=== PATIENT | male | born 1970 | race Caucasian/White ===

== ENCOUNTER 2021-03-26 06:24 | Emergency (ER) | payer MEDICARE, MEDICAID, SELFPAY ==
[2021-03-26 06:28] VITALS: BP 161/109; PULSE 102; RESP 18; TEMP 36.7; O2SAT 96; BMI 28.1
--- NOTE | 2021-03-26 06:35 | USR_ITS ---
PROCEDURE INFORMATION: Exam: US Scrotum Exam date and time: 03/26/2021 6:35 AM Age: 50 years old Clinical indication: Groin pain and scrotum pain TECHNIQUE: Imaging protocol: Real-time ultrasound of the scrotum and contents with color Doppler and image documentation. COMPARISON: No relevant prior studies available. FINDINGS: Right testicle: The right testicle measures 4.8 x 1.8 x 3.0 cm. Homogeneous echotexture with no mass. Normal color flow and spectral Doppler waveforms noted within the testicle. Left testicle: The left testicle measures 4.8 x 2.1 x 3.5 cm. Homogeneous echotexture with no mass. Slightly increased blood flow within the left testicle with normal spectral Doppler waveforms. Epididymides: The left epididymal head measures 7 mm and contains 2 contiguous hypoechoic cysts measuring 6 mm in aggregate. The right epididymal head measures 7 mm. Scrotum: No significant hydrocele. US/US scrotum [id number] IMPRESSION: 1. Mild hyperemia of the left testicle, correlate for orchitis. 2. No evidence of testicular torsion or mass. 3. Incidental small left epididymal head cysts/spermatoceles.
--- NOTE | 2021-03-26 06:36 | ED_ITS ---
HPI - Male Genitourinary General: Chief complaint: Urogenital-Male Stated complaint: TESTICAL PAIN Time Seen by Provider: 03/26/21 06:33 History of Present Illness: HPI Narrative: This patient is a 50-year-old male who presents to the emergency department plaint of left testicle pain. Patient states appears to be more above the testicle but between the testicle and the shaft of the penis. Patient states he also has pain over to the left groin area. Patient states [place] [facility] [facility] last weekend but does not remember any injury. Patient's been hurting for the past 2 days. Will do medical evaluation treat as needed MD Complaint: testicle pain Associated symptoms: Deny dysuria, nausea or vomiting Review of Systems General: Reports: 10 or more systems reviewed and unremarkable except in HPI and below Const: Denies: fever(s), chills, body aches or fatigue Eyes: Denies: change in vision or blurry vision ENMT: Denies: throat pain, hoarseness or mouth pain Card: Denies: chest pain, palpitations, irregular heart rhythm, edema, swe lling of feet/ankles or lightheadedness Resp: Denies: dyspnea, productive cough, non-productive cough, wheezing or pain on inspiration GI: Denies: abdominal pain, nausea or vomiting : Reports: testicular pain; Denies: flank pain, dysuria, urinary frequency, urinary urgency or urinary hesitancy Musc: Denies: neck pain, back pain, extremity pain, extremity swelling, joint pain, joint swelling, joint redness, joint warmth or limited range of motion Skin/Breast: Denies: rash, pruritus, erythema or skin tenderness Neuro: Denies: headache(s), numbness in extremities or weakness in extremities Psych: Denies: anxiety or depression Physical Exam Const: COMMON NORMALS: no acute distress, average body habitus, patient oriented x3, no limitations, healthy appearing, alert and well nourished HENMT: COMMON NORMALS: normocephalic, atraumatic, hearing grossly normal bilaterally, external ears normal, EAC's normal, TM's normal bilaterally, Normal external nose present, Normal nasal mucous membranes and turbinates present, moist oral mucous membranes, oropharynx normal, dentition normal and gingiva normal HEAD & SCALP: normocephalic and atraumatic NOSE: Normal external nose present and Normal nasal mucous membranes and turbinates present EXTERNAL EAR: Yes external ears normal EXTERNAL AUDITORY CANAL: EAC's normal TYMPANIC MEMBRANE: TM's normal bilaterally Neck/C-Spine: COMMON NORMALS: full ROM, no lymphadenopathy, supple, no meningeal signs, no JVD, Thyroid normal and No carotid bruits THYROID: Thyroid normal Chest: COMMONS NORMALS: normal inspection of the chest, normal palpation of entire chest wall, normal inspection of the breasts and normal palpation of the breasts Breast/axilla inspection: Yes normal inspection of the breasts BREAST/AXILLA PALPATION: Yes normal palpation of the breasts Resp: COMMON NORMALS: normal respiratory effort, No retractions, No use of accessory muscles, clear to auscultation bilaterally and percussion normal AUSCULTATION: clear to auscultation bilaterally PERCUSSION: percussion normal Cardio: COMMON NORMALS: no JVD, regular rate, regular rhythm, S1 normal heart sound present, S2 normal heart sound present, No gallops present (Cardio), No clicks present (Cardio), No murmurs present (Cardio), No rub (Cardio) and Peripheral pulses 2+ throughout RATE: regular rate RHYTHM: regular rhythm HEART SOUNDS: S1 normal heart sound present and S2 normal heart sound present PERIPHERAL PULSES: Peripheral pulses 2+ throughout GI: COMMON NORMALS: Normal to inspection, nondistended, normoactive bowel sounds present, Soft to palpation, non-tender, No hepatosplenomegaly present, no masses and no bruits PALPATION: Yes Soft to palpation and Yes No hepatosplenomegaly present : COMMON NORMALS: Yes no CVA tenderness BLADDER/KIDNEY EXAM: Yes no CVA tenderness TESTES: Yes testicular tenderness (To palpation around the ep ididymis. Does not appear to have torsion.) Testicular tenderness laterality: left Back/Pelvis: COMMON NORMALS: no CVA tenderness, thoracic and lumbar spine normal to inspection, no thoracic nor lumbar tenderness, thoraco-lumbar ROM normal and straight leg raise negative bilaterally Extremity: COMMON NORMALS: normal to inspection, full ROM, capillary refill normal, no joint enlargement, no clubbing, cyanosis or edema, no calf tenderness and no pedal edema Neuro: COMMON NORMALS: patient oriented x3 SENSORIUM/ORIENTATION: Yes alert MENINGEAL SIGNS: Yes no meningeal signs Course ED course: Patient appears to have orchitis. Other evaluation negative negative ultrasound for torsion. Patient given instructions will be discharged home states understanding Vital Signs: Vital signs: Vital Signs Temperature 98.1 F 03/26/21 06:28 Pulse Rate 88 03/26/21 07:37 Respiratory Rate 18 03/26/21 07:37 Blood Pressure 148/100 03/26/21 07:37 Pulse Oximetry 98 03/26/21 07:37 MDM - Male MDM Narrative: Medical decision making narrative: This patient is a 50-year-old male who presents to the emergency department plaint of left testicle pain. Patient states appears to be more above the testicle but between the testicle and the shaft of the penis. Patient states he also has pain over to the left groin area. Patient states [place] [facility] [place] [facility] [place] weekend but does not remember any injury. Patient's been hurting for the past 2 days Patient appears to have orchitis. Patient will be placed on doxycycline. And diclofenac for pain. Patient instructed to use ice as needed. Athletic supporter. Follow-up with primary care physician in 3 to 5 days if not improved. Medical Records: Attestation: I reviewed the patient's medical records. Lab Data: Attestation: I reviewed the patient's lab results. Labs: Lab Results 03/26/21 Range/Units 06:57 Urine Color Yellow (Yellow) Urine Appearance Clear (CLEAR) Urine pH 5 (5-7) Ur Specific Gravit y 1.015 (1.005-1.030) Urine Protein Neg (Negative) Urine Glucose (UA) Norm (Normal) Urine Ketones Negative (Negative) Urine Blood Neg (Negative) Urine Nitrate Negative (Negative) Urine Bilirubin Neg (Negative) Urine Urobilinogen 1 H (Negative) mg/dL Ur Leukocyte Tresa ase Negative (Negative) Imaging Data: US: Attestation: I personally reviewed and interpreted this imaging study as fol lows: Radiologist's impression: IMPRESSION: 1. Mild hyperemia of the left testicle, correlate for orchitis. 2. No evidence of testicular torsion or mass. 3. Incidental small left epididymal head cysts/spermatoceles. Discharge Plan Discharge Patient Disposition: Home Clinical Impression: Acute orchitis Condition: Stable Prescriptions: New doxycycline hyclate 100 mg capsule 100 mg PO BID 7 Days Qty: 14 RF: 0 diclofenac sodium 75 mg tablet,delayed release (DR/EC) 75 mg PO BID PRN (Reason: pain) Qty: 20 RF: 0 Discharge Orders: Discharge ED (Routine); Ordered 03/26/21 Ordered By: Jeff Blanchard Discharge Diet: Advance as tolerated Discharge Activity: Resume usual activity Patient Instructions: Opioid Safety Activity Restrictions/Additional Instructions: Encourage p.o. fluids. Take medications as instructed. Use athletic supporter as needed. Ice as needed. Follow-up with PCP in 3 to 5 days if not. Coding Level of Care Code ED Project Architect for Manuel[employer] Fwd Exam Comprehensive
[2021-03-26 07:24] LABS: Add Urine Microscopic? NO; Charge for UA Resulting for Rev
[2021-03-26 07:34] LABS: Bilirubin Urine Neg (Negative); Blood Urine Neg (Negative); Glucose Urine UA Norm (Normal); Ketones Urine Negative (Negative); Leukocyte Esterase Urine Negative (Negative); Nitrate Urine Negative (Negative); Protein Urine Neg (Negative); Specific Gravity, Urine 1.015 (1.005-1.030); Urine Appearance Clear (CLEAR); Urine Color Yellow (Yellow); Urobilinogen Urine 1 mg/dL (Negative); pH Urine 5 (5-7)
[2021-03-26 07:37] VITALS: BP 148/100; PULSE 88; RESP 18; O2SAT 98
[2021-03-26 08:45] VITALS: BP 148/100; PULSE 88; RESP 18; O2SAT 98
== END 2021-03-26 08:45 | disposition home or self-care (01) ==
PROVIDERS: Emergency Provider Emergency Medicine
DX: N45.2 Orchitis (principal)
CPT/HCPCS: 76870; 81003; 99282

== ENCOUNTER 2021-10-24 06:00 | Outpatient (RCR) | payer MEDICARE, MEDICAID, SELFPAY | END 2021-10-30 23:59 | disposition home or self-care (01) | LOC: SPT 06:00 | PROVIDERS: Referring Provider Family Medicine; Visit Provider Family Medicine | DX: M51.26 Other intervertebral disc displacement, lumbar region (principal); M54.16 Radiculopathy, lumbar region | CPT/HCPCS: 97161 ==

== ENCOUNTER → 2022-10-09 17:39 | Outpatient (BNVA) | payer MEDICARE, MEDICAID, SELFPAY | PROVIDERS: Visit Provider Nurse Practitioner Family | DX: I10 Essential (primary) hypertension (principal); Z12.5 Encounter for screening for malignant neoplasm of prostate; K21.9 Gastro-esophageal reflux disease without esophagitis; Z12.2 Encounter for screening for malignant neoplasm of respiratory organs; Z12.11 Encounter for screening for malignant neoplasm of colon; F17.200 Nicotine dependence, unspecified, uncomplicated; F32.A Depression, unspecified; F41.9 Anxiety disorder, unspecified | CPT/HCPCS: 80053; 80061; G0103 ==

== ENCOUNTER → 2022-12-07 15:55 | Outpatient (BNVA) | payer MEDICARE, SELFPAY | PROVIDERS: Visit Provider Nurse Practitioner Family | DX: R10.12 Left upper quadrant pain (principal) | CPT/HCPCS: 74018 ==

== ENCOUNTER → 2023-04-08 16:39 | Outpatient (BNVA) | payer MEDICARE, SELFPAY | PROVIDERS: Visit Provider Nurse Practitioner Family | DX: E78.2 Mixed hyperlipidemia (principal); F41.9 Anxiety disorder, unspecified; F32.A Depression, unspecified; I10 Essential (primary) hypertension | CPT/HCPCS: 80053; 80061 ==

== ENCOUNTER → 2023-04-24 14:40 | Outpatient (BNVA) | payer MEDICARE, SELFPAY | PROVIDERS: Visit Provider Nurse Practitioner Family | DX: N52.9 Male erectile dysfunction, unspecified (principal) | CPT/HCPCS: 84402; 84403 ==

== ENCOUNTER → 2023-06-25 15:13 | Outpatient (BNVA) | payer MEDICARE, SELFPAY | PROVIDERS: Visit Provider Nurse Practitioner Family | DX: N52.9 Male erectile dysfunction, unspecified (principal); E78.2 Mixed hyperlipidemia; I10 Essential (primary) hypertension; J30.2 Other seasonal allergic rhinitis; J44.9 Chronic obstructive pulmonary disease, unspecified; F17.200 Nicotine dependence, unspecified, uncomplicated; Z12.2 Encounter for screening for malignant neoplasm of respiratory organs; R14.0 Abdominal distension (gaseous) | CPT/HCPCS: 80053; 80061; 84402; 84403 ==

== ENCOUNTER 2023-07-15 15:00 | Outpatient (CLI) | payer MEDICARE, SELFPAY ==
[2023-07-15] MEDS: iohexol 350 mg/mL 500 mL Btl (per mL) PO (15:59)
--- NOTE | 2023-07-15 16:00 | CT_ITS ---
WS: [id number] LDCT LUNG CANCER SCREENING TECHNIQUE: Noncontrast CT of the chest with coronal and sagittal reformatted images. CLINICAL INFORMATION: LUNG CANCER SCREENING COMPARISON: None. DLP: 72.02 mGy.cm DIvol: Mean CTDIvol: 1.40 (mGy) All CT scans at [facility] use at least one of these dose optimization techniques: automat ed exposure control; mA and/or kV adjustment per patient size (includes targeted exams where dose is matched to clinical indication); or iterative reconstruction. FINDINGS: Tiny noncalcified nodule RIGHT upper lobe. Calcified granuloma LEFT lower lobe. Bibasal ate lectasis. Normal caliber thoracic aorta. Calcified subcarinal lymph nodes. Calcified LEFT hilar lymph nodes. No axillary lymphadenopathy. Cholecystectomy clips. Moderate esophageal renal hernia. Small granulomas. LEFT adrenal adenomas larg est measuring 1.8 cm. Thickening LEFT adrenal gland. RIGHT adrenal gland is normal. Cholecystectomy c lips. IMPRESSION: CT/CT lung screening [id number] LUNG-RADS: 2-Benign Appearance or Behavior FOLLOW UP: 12 Month: Continue annual screening with LDCT
--- NOTE | 2023-07-15 16:15 | CT_ITS ---
WS: [id number] CT ABDOMEN PELVIS TECHNIQUE: Contrast-enhanced CT of the abdomen and pelvis with coronal and sagittal reformatted image s. CLINICAL INFORMATION: BLOATING, 4-5 bm DAILY COMPARISON: None. DLP: 603.[address] scans at [facility] use at least one of these dose optimization techniques: automated e xposure control; mA and/or kV adjustment per patient size (includes targeted exams where dose is matc hed to clinical indication); or iterative reconstruction. FINDINGS: Mild hepatomegaly. Diffuse fatty filtration of the liver. Prior cholecystectomy. Moderate esophageal hiatal hernia. Slight bibasilar atelectasis. Normal pancreas. Normal portal vein and splenic vein. Normal spleen. Sp lenic granulomas. Thickening of the LEFT adrenal gland with LEFT adrenal adenoma measuring 1.8 cm. Ad ditional smaller adenoma measuring 1.3 cm. Normal RIGHT adrenal gland. Normal renal parenchymal enhancement. No hydronephrosis. Normal caliber a bdominal aorta. Aortic calcification. Tiny fat-containing umbilical hernia. Sigmoid diverticulosis. N o evidence of acute diverticulitis. Circumferential wall thickening involving the cecum with luminal narrowing. This is nonspecific. Recommend further evaluation with colonoscopy. Normal appendix in the RIGHT lower quadrant. No abdominal or pelvic lymphadenopathy. IMPRESSION: 1. Diffuse wall thickening involving the cecum nonspecific with luminal narrowing. Recommend further evaluation with colonoscopy. Neoplasm not excluded. 2. Mild hepatomegaly with diffuse fatty infiltration of the liver. 3. Prior cholecystectomy. 4. Sigmoid diverticulosis. No evidence of acute diverticulitis. 5. Nodular LEFT adrenal gland likely due to adenomas the largest measuring 1.8 cm. 6. Moderate esophageal hernia. 7. Small fat-containing umbilical hernia.
[2023-07-15] MEDS: iohexol 350 mg/mL 500 mL Btl (per mL) IV (16:18)
== END 2023-07-15 15:01 | disposition home or self-care (01) ==
PROVIDERS: PCP Nurse Practitioner Family; Visit Provider Nurse Practitioner Family
DX: Z12.2 Encounter for screening for malignant neoplasm of respiratory organs (principal); F17.200 Nicotine dependence, unspecified, uncomplicated; R14.0 Abdominal distension (gaseous); K76.0 Fatty (change of) liver, not elsewhere classified; R16.0 Hepatomegaly, not elsewhere classified; Z90.49 Acquired absence of other specified parts of digestive tract; K57.30 Diverticulosis of large intestine without perforation or abscess without bleeding; E27.9 Disorder of adrenal gland, unspecified; K44.9 Diaphragmatic hernia without obstruction or gangrene; K42.9 Umbilical hernia without obstruction or gangrene
CPT/HCPCS: 71271; 74177; Q9967

== ENCOUNTER → 2023-09-02 13:06 | Outpatient (BNVA) | payer MEDICARE, SELFPAY | PROVIDERS: PCP Nurse Practitioner Family; Referring Provider Nurse Practitioner Family; Visit Provider Surgery | DX: R10.12 Left upper quadrant pain (principal); R93.5 Abnormal findings on diagnostic imaging of other abdominal regions, including retroperitoneum; R14.0 Abdominal distension (gaseous); K63.9 Disease of intestine, unspecified | CPT/HCPCS: 99204 ==

== ENCOUNTER → 2023-09-10 17:33 | Outpatient (BNVA) | payer MEDICARE, SELFPAY | PROVIDERS: PCP Nurse Practitioner Family; Visit Provider Surgery | DX: R10.12 Left upper quadrant pain (principal) | CPT/HCPCS: 82274 ==

== ENCOUNTER 2023-09-13 08:18 | Day surgery (SDC) | payer MEDICARE, SELFPAY ==
--- NOTE | 2023-09-13 08:00 | P.HPUD_ITS ---
Surgery/Procedure H&P Update DATE OF PROCEDURE: September 13, 2023 DATE H&P PERFORMED: 09/02/23 H&P UPDATE INFORMATION: I have reviewed H&P completed within last 30 days, I have examined patient prior to procedure, No changes to prior documentation and [place] in [facility] [place] date indicated PLANNED PROCEDURE: Operation Date: 09/13/23 09:15 Proposed Procedures p [id number] colon G0121 screen colon A risk R93.5,R14.0,K63.9(Not Applicable) - Azam Hernandez MD
[2023-09-13 08:28] VITALS: BP 158/119; PULSE 126; RESP 18; TEMP 37; O2SAT 96; BMI 31.1
--- NOTE | 2023-09-13 08:37 | ANES.PREANE2 ---
Pre-Anesthetic Assessment Height/Weight: Height 1.73 m Weight 92.986 kg Temp Pulse Resp BP Pulse Ox O2 Del Method 98.6 F 126 H 18 158/119 96 Room Air 09/13/23 08:28 09/13/23 08:28 09/13/23 08:28 09/13/23 08:28 09/13/23 08:28 09/13/23 08:28 Operation Date: 09/13/23 09:15 Proposed Procedures p [id number] colon G0121 screen colon A risk R93.5,R14.0,K63.9(Not Applicable) - Azam Hernandez MD Familial anesthetic complications: None Was Beta Markus taken within 24 hours: N/A Was Clonidine taken within 24 hours: N/A Last intake: Intake Last Liquid Date 09/13/23 Last Liquid Time 01:00 Last Solid Date 09/12/23 Last Solid Time 03:30 Social Tobacco and No alcohol Exam alert, oriented x 3, clear to auscultation bilaterally and regular rate & rhythm Airway Mallampati: Class II Dentition: other (very poor dentition) Pulmonary Chronic Obstructive Pulmonary Disease CV/HEM Hypertension Hepatic fatty liver GI Gastroesophageal Reflux Disease Anesthetic Plan ASA status: 3 Anesthesia: MAC Risk of > 500 ml blood loss (7ml/kg in children): No Medications/Allergies Home Medications Medication Instructions Recorded Confirmed Last Taken Type lisinopril 40 mg tablet 40 mg PO DAILY 90 days #90 tabs 04/08/23 09/11/23 09/12/23 Rx pantoprazole 40 mg tablet,delayed 40 mg PO DAILY 90 days #90 tabs 04/08/23 09/13/23 09/12/23 Rx release (Protonix) simvastatin 40 mg tablet 40 mg PO .QHS 90 days #90 tabs 04/16/23 09/13/23 09/12/23 Rx tadalafil 10 mg tablet (Cialis) 10 mg PO DAILY PRN sexual activity 04/24/23 09/11/23 Unknown Rx #30 tabs albuterol sulfate 90 mcg/actuation 2 puff inhalation QID PRN 06/25/23 09/11/23 09/09/23 Rx aerosol inhaler (Ventolin HFA) shortness of breath or wheezing #8.5 grams loratadine 10 mg tablet (Claritin) 10 mg PO DAILY 90 days #90 tabs 06/25/23 09/13/23 09/12/23 Rx Allergies Allergy/AdvReac Type Severity Reaction Status Date / Time azithromycin Allergy ALGY-Rash Verified 09/02/23 13:08 [From Zithromax Z-Froilan] Penicillins Allergy ALGY-Swell Verified 09/02/23 13:08 Lip/Tongue/Throat PFSH Anesthesia Family History (Updated 09/02/23 @ 13:12 by ELLEN Hernandez) Father Heart disease Social History (Updated 09/02/23 @ 13:11 by ELLEN Hernandez) Smoking and tobacco/nicotine status: current every day tobacco/nicotine user Data Anesthesia Cardiac Studies: No Data to Display
[2023-09-13] MEDS: sodium chloride 0.9% 1,000 ML 30 ML IV (08:43)
[2023-09-13 09:54] VITALS: BP 126/88; PULSE 107; RESP 12; TEMP 36.1; O2SAT 96
[2023-09-13 10:10] VITALS: BP 126/95; PULSE 102; RESP 18; O2SAT 96
[2023-09-13 10:20] VITALS: BP 151/108; PULSE 97; RESP 18; O2SAT 97
[2023-09-13] MEDS: acetaminophen 500 mg Tablet 1000 MG PO (10:39)
--- NOTE | 2023-09-13 14:46 | ANE.PACU2 ---
Inpatient post-anesthesia follow up: Airway intact: Yes Vital signs: Temperature 97.0 F Pulse Rate 97 Respiratory Rate 18 Blood Pressure 151/108 Pulse Oximetry 97 Oxygen Delivery Me thod Room Air Oxygen Flow Rate Fraction of Inspir ed Oxygen Hydration adequate: Yes Nausea and vomiting: No Pain level: 1 Mental status: Baseline
== END 2023-09-13 11:00 | disposition home or self-care (01) ==
PROVIDERS: PCP Nurse Practitioner Family; Visit Provider Surgery
PROC: 0DJD8ZZ Inspection of Lower Intestinal Tract, Via Natural or Artificial Opening Endoscopic (ICD-10-PCS; CPT 45378; principal; 2023-09-13 09:15)
DX: R93.5 Abnormal findings on diagnostic imaging of other abdominal regions, including retroperitoneum (principal); R14.0 Abdominal distension (gaseous); K63.9 Disease of intestine, unspecified; J44.9 Chronic obstructive pulmonary disease, unspecified; I10 Essential (primary) hypertension; K76.0 Fatty (change of) liver, not elsewhere classified; K21.9 Gastro-esophageal reflux disease without esophagitis
CPT/HCPCS: 45380; 76937; 88305; J2704; J7030

== ENCOUNTER → 2023-10-09 14:15 | Outpatient (BNVA) | payer MEDICARE, SELFPAY | PROVIDERS: PCP Nurse Practitioner Family; Visit Provider Nurse Practitioner Family | DX: I10 Essential (primary) hypertension (principal); N52.9 Male erectile dysfunction, unspecified; E78.2 Mixed hyperlipidemia; Z12.5 Encounter for screening for malignant neoplasm of prostate | CPT/HCPCS: 80053; 80061; 84402; 84403; 84443; G0103 ==

== ENCOUNTER → 2024-10-20 15:36 | Outpatient (BNVA) | payer MEDICARE, SELFPAY | PROVIDERS: PCP Nurse Practitioner Family; Visit Provider Nurse Practitioner Family | DX: Z12.5 Encounter for screening for malignant neoplasm of prostate (principal); I10 Essential (primary) hypertension; R73.9 Hyperglycemia, unspecified; N52.9 Male erectile dysfunction, unspecified | CPT/HCPCS: 80053; 80061; 82607; 83036; 84443; 85025; G0103 ==

== ENCOUNTER → 2025-07-26 14:55 | Outpatient (BNVA) | payer MEDICARE, SELFPAY | PROVIDERS: PCP Nurse Practitioner Family; Visit Provider Nurse Practitioner Family | DX: I10 Essential (primary) hypertension (principal); N52.9 Male erectile dysfunction, unspecified; R73.9 Hyperglycemia, unspecified | CPT/HCPCS: 80053; 80061; 83036; 84443; 85025 ==